=== PATIENT | male | born 1965 | race Two or more races ===

== ENCOUNTER 2021-06-04 10:48 | Emergency (ER) | payer OTHER, SELFPAY ==
[~2021-06-04] VITALS: Ht 170.2 cm; Wt 83.5 kg
--- NOTE | 2021-06-04 11:26 | NUR ---
CONTACT WITH PT, 56 YR OLD MALE HERE WITH C/O "I HAVE A PROBLEM WHEN I GO PEE, ITS REALLY HARD TO PEE. WHEN I PEE ITS YELLOW BUT CLOUDY. IT HURTS FROM THE END OF MY PENIS UP (POINTS TO LOW ABD). THE LAST FEW TIMES I PEED IT WAS BLOODY" BEGAN TODAY.
[2021-06-04 11:36] VITALS: BP 146/90
[2021-06-04 11:39] LABS: MICROSCOPIC INDICATED
--- NOTE | 2021-06-04 13:26 | NUR ---
PT LAYING ON GURNEY, NO ACUTE DISTRESS NOTED. NO IV TO DC. REVIEWED DC INSTRUCTIONS WITH PT AND PTS DAUGHTER. UNDERSTANDING VERBALIZED. PT LEFT AMB, GAIT STEADY.
== END 2021-06-04 13:29 | disposition home or self-care (01) ==
LOC: ED 13:15
DX: N30.01 Acute cystitis with hematuria (principal); E11.9 Type 2 diabetes mellitus without complications; F17.200 Nicotine dependence, unspecified, uncomplicated
CPT/HCPCS: 81001; 87077; 87086; 87186; 99283